=== PATIENT | male | born 1940 | race Caucasian/White ===

== ENCOUNTER 2021-04-22 09:01 | Outpatient (CLI) | payer OTHER | END 2021-04-22 09:15 | disposition home or self-care (01) | LOC: TOM 09:01 | PROVIDERS: ATTEND Colon & Rectal Surgery | DX: D12.4 Benign neoplasm of descending colon (principal); Z12.11 Encounter for screening for malignant neoplasm of colon; Z85.038 Personal history of other malignant neoplasm of large intestine ==